=== PATIENT | female | born 1945 | race Hispanic/Latino ===

== ENCOUNTER 2021-01-26 02:23 | Emergency (ER) | payer MEDICARE ==
[~2021-01-26] VITALS: Ht 157.5 cm; Wt 65.8 kg
[2021-01-26 02:39] VITALS: BP 156/77
[2021-01-26] MEDS ORDERED: SOLU-MEDROL 40MG VIAL IJ ONE (02:45)
[2021-01-26] MEDS ORDERED: PRED10 PO (02:46)
[2021-01-26] MEDS ORDERED: SOLU-MEDROL 40MG VIAL ONE (02:48)
== END 2021-01-26 02:59 | disposition home or self-care (01) ==
LOC: EDH 02:23
DX: L50.9 Urticaria, unspecified (principal); E78.00 Pure hypercholesterolemia, unspecified; I10 Essential (primary) hypertension; J45.909 Unspecified asthma, uncomplicated
CPT/HCPCS: 96372; 99283; J2920; 96374

== ENCOUNTER 2021-12-31 12:16 | Emergency (ER) | payer MEDICARE ==
[~2021-12-31 12:16] MED LIST: PRED10 PO
[2021-12-31 12:20] VITALS: BP 121/77
== END 2021-12-31 14:07 | disposition home or self-care (01) ==
LOC: EDH 12:16
DX: S00.93XA Contusion of unspecified part of head, initial encounter (principal); E11.9 Type 2 diabetes mellitus without complications; I10 Essential (primary) hypertension; Z98.890 Other specified postprocedural states; Z79.899 Other long term (current) drug therapy; W18.31XA Fall on same level due to stepping on an object, initial encounter; Y93.89 Activity, other specified; Y92.89 Other specified places as the place of occurrence of the external cause; Y99.8 Other external cause status
CPT/HCPCS: 70450; 72125